=== PATIENT | male | born 1960 | race Caucasian/White ===

== ENCOUNTER 2024-01-27 10:38 | Emergency (ER) | payer BC ==
--- NOTE | 2024-01-27 11:15 | ED ---
General Adult HPI - General Chief complaint: Abdominal Pain Stated complaint: Abd pain-sent by Time Seen by Provider: 01/27/24 10:49 Source: patient, family, RN notes reviewed Mode of arrival: ambulatory Limitations: no limitations - History of Present Illness Initial comments: Patient is a pleasant 63-year-old male presenting to the emergency department with right inguinal pain. Patient has a known hernia. Patient states this morning it started to bother him again. Patient states it did pop out and was uncomfortable and hard. Patient states he was able to lie down and it did reduce itself. Patient states minimal discomfort at this point. Patient has had history of similar episodes multiple times previously. Patient did call his doctor who advised him to come to the emergency department. - Related Data Home Medications Medication Instructions Recorded Confirmed Acetaminophen Tab [Tylenol Tab] 1,000 mg PO Q6HR PRN 01/27/24 01/27/24 Tamsulosin [Flomax] 0.4 mg PO DIRECTED 01/27/24 01/27/24 Allergies Allergy/AdvReac Type Severity Reaction Status Date / Time No Known Allergies Allergy Verified 01/27/24 11:20 Review of Systems ROS Statement: Those systems with pertinent positive or pertinent negative responses have been documented in the HPI. ROS Other: All systems not noted in ROS Statement are negative. Constitutional: Denies: fever Eyes: Denies: eye pain ENT: Denies: ear pain Respiratory: Denies: cough Cardiovascular: Denies: chest pain Endocrine: Denies: fatigue Gastrointestinal: Reports: as per HPI Genitourinary: Reports: as per HPI Musculoskeletal: Denies: back pain Skin: Denies: rash Past Medical History Past Medical History: No Reported History Past Surgical History: No Surgical Hx Reported Smoking Status: Current every day smoker General Exam Limitations: no limitations General appearance: alert, in no apparent distress Head exam: Present: normocephalic Eye exam: Present: normal appearance Neck exam: Present: normal inspection Respiratory exam: Present: normal lung sounds bilaterally Cardiovascular Exam: Present: regular rate, normal rhythm GI/Abdominal exam: Present: soft, hernia (Easily reducible umbilical hernia). Absent: tenderness exam: Present: normal inspection, other (No hernia at this time). Absent: testicular tenderness, scrotal swelling Neurological exam: Present: alert Psychiatric exam: Present: normal affect, normal mood Skin exam: Present: normal color Course Vital Signs 01/27/24 10:41 Temperature 98 F Pulse Rate 85 Respiratory 16 Rate Blood Pressure 147/89 O2 Sat by Pulse 98 Oximetry Medical Decision Making - Medical Decision Making Was pt. sent in by a medical professional or institution (GHADA Garner, BRANCH OPERATION EVALUATION MANAGER, urgent care, hospital, or fci...) When possible be specific @ -No Did you speak to anyone other than the patient for history (EMS, parent, family, police, friend...)? What history was obtained from this source @ - is present and helps provide history including recurrent symptoms Did you review nursing and triage notes (agree or disagree)? Why? @ -I reviewed and agree with nursing and triage notes Were old charts reviewed (outside hosp., previous admission, EMS record, old EKG, old radiological studies, urgent care reports/EKG's, fci records)? Report findings @ -No old charts were reviewed Differential Diagnosis (chest pain, altered mental status, abdominal pain women, abdominal pain men, vaginal bleeding, weakness, fever, dyspnea, syncope, headache, dizziness, GI bleed, back pain, seizure, CVA, palpatations, mental health, musculoskeletal)? @ -Differential Abdominal Pain Men: Appendicitis, cholecystitis, diverticulosis, ischemic bowel, pancreatitis, hepatitis, UTI, gastroenteritis, AAA, incarcerated hernia, bowel obstruction, constipation, inflammatory bowel, hepatitis, peptic ulcer disease, splenic i nfarction, perforated viscus, testicular torsion, this is not meant to be an all-inclusive list EKG interpreted by me (3pts min.). @ -As above X-rays interpreted by me (1pt min.). @ -None done CT interpreted by me (1pt min.). @ -None done U/S interpreted by me (1pt. min.). @ -None done What testing was considered but not performed or refused? (CT, X-rays, U/S, labs)? Why? @ -Considered imaging however patient has symptoms consistent with straightforward inguinal hernia that has reduced with resolution of symptoms What meds were considered but not given or refused? Why? @ -None Did you discuss the management of the patient with other professionals (professionals i.e. GHADA Garner, BRANCH OPERATION EVALUATION MANAGER, lab, RT, psych nurse, 7th grade social studies teacher, correctional nurse, teacher, ground nuclear weapons assembly officer, field nurse case manager)? Give summary @ -Case was discussed with Dr. Cunha who did come evaluate patient and agrees with discharge Was smoking cessation discussed for >3mins.? @ -No Was critical care preformed (if so, how long)? @ -No Were there social determinants of health that impacted care today? How? (Homelessness, low income, unemployed, alcoholism, drug addiction, transportation, low edu. Level, literacy, decrease access to med. care, custodial, rehab)? @ -No Was there de-escalation of care discussed even if they declined (Discuss DNR or withdrawal of care, Hospice)? DNR status @ -No What co-morbidities impacted this encounter? (DM, HTN, Smoking, COPD, CAD, Cancer, CVA, ARF, Chemo, Hep., AIDS, mental health diagnosis, sleep apnea, morbid obesity)? @ -None Was patient admitted / discharged? Hospital course, mention meds given and route, prescriptions, significant lab abnormalities, going to OR and other pertinent info. @ -Patient and family updated on results and need to return if symptoms worsen as well as techniques for reducing hernia. Patient otherwise will follow-up with Dr. Beckwith for surgery next week. Undiagnosed new problem with uncertain prognosis? @ -No Drug Therapy requiring intensive monitoring for toxicity (Heparin, Nitro, Insulin, Cardizem)? @ -No Were any procedures done? @ -No Diagnosis/symptom? @ -Inguinal hernia Acute, or Chronic, or Acute on Chronic? @ -Acute on chronic Uncomplicated (without systemic symptoms) or Complicated (systemic symptoms)? @ -Default Side effects of treatment? @ -No Exacerbation, Progression, or Severe Exacerbation? @ -No Poses a threat to life or bodily function? How? (Chest pain, [place], [place], pneumonia, PE, COPD, DKA, ARF, appy, cholecystitis, CVA, Diverticulitis, Homicidal, Suicidal, threat to staff... and all critical care pts) @ -No Disposition Clinical Impression: Inguinal hernia Disposition: HOME SELF-CARE Condition: Stable Instructions (If sedation given, give patient instructions): Inguinal Hernia (ED) Additional Instructions: Please follow-up with Dr. Beckwith with surgery next week as planned. Return for increased pain, swelling, vomiting, fever, worsening or changing symptoms or any other concerns. Is patient prescribed a controlled substance at d/c from ED?: No Referrals: Messi Kidd MD [Primary Care Provider] - 1-2 days Lior Beckwith MD [STAFF PHYSICIAN] - 1-2 days Time of Disposition: 13:20
[2024-01-27 11:16] VITALS: TEMP 98
--- NOTE | 2024-01-27 13:04 | P.GSCN ---
History of Present Illness Consult date: 01/27/24 Reason for Consult: Right inguinal hernia pain History of present illness: Is a 63-year-old male known history of right angle hernia and umbilical hernia. Patient scheduled for operative repair next week. Patient states that he had severe right internal pain this morning. Patient states the pain spontaneously Resolved once he was in the emergency. Patient has no current pain Past Medical History Past Medical History: No Reported History Past Surgical History: No Surgical Hx Reported Smoking Status: Current every day smoker Medications and Allergies Home Medications Medication Instructions Recorded Confirmed Type Acetaminophen Tab [Tylenol Tab] 1,000 mg PO Q6HR PRN 01/27/24 01/27/24 History Tamsulosin [Flomax] 0.4 mg PO DIRECTED 01/27/24 01/27/24 History Allergies Allergy/AdvReac Type Severity Reaction Status Date / Time No Known Allergies Allergy Verified 01/27/24 11:20 Surgical - Exam Vital Signs Temp Pulse Resp BP Pulse Ox 98 F 85 16 147/89 98 01/27/24 10:41 01/27/24 10:41 01/27/24 10:41 01/27/24 10:41 01/27/24 10:41 - General well developed, well nourished, no distress - Eyes PERRL - ENT normal pinna, normal nares - Neck no masses - Respiratory normal expansion - Cardiovascular Rhythm: regular - Abdomen Reducible umbilical hernia reducible right inguinal hernia Abdomen: soft, non tender Assessment and Plan Assessment: Acute abdominal pain related to hernia. Patient has no pain currently. Patiently discharged home. He will follow-up for surgery next week.
[2024-01-27 13:53] VITALS: BP 115/74; PULSE 72; RESP 12
== END 2024-01-27 13:53 | disposition home or self-care (01) ==
LOC: EC 10:38
DX: K40.90 Unilateral inguinal hernia, without obstruction or gangrene, not specified as recurrent (principal); F17.200 Nicotine dependence, unspecified, uncomplicated
CPT/HCPCS: 99284

== ENCOUNTER 2024-02-02 06:17 | Day surgery (SDC) | payer BC ==
[~2024-02-02 06:17] MED LIST: HEPARIN SODIUM,PORCINE 5,000 UNIT/ML 1 ML VIAL SQ PRN; LACTATED RINGERS 1,000 ML IV SCH
[2024-02-02] MEDS: LACTATED RINGERS 1,000 ML IV ONE ×2 (07:44→08:45)
[2024-02-02] MEDS: ACETAMINOPHEN TAB 500 MG TAB PO PRN (07:47)
[2024-02-02] MEDS: DEXAMETHASONE SOD PHOSPHATE 4 MG/ML 1 ML VIAL IV ONE (07:47)
[2024-02-02] MEDS: ONDANSETRON 4 MG/2 ML VIAL IVP ONE ×2 (07:47→10:41)
[2024-02-02] MEDS: MIDAZOLAM 2 MG/2 ML VIAL IVP ONE (07:50)
[2024-02-02] MEDS: HEPARIN SODIUM,PORCINE 5,000 UNIT/ML 1 ML VIAL SQ ONE (08:00)
[2024-02-02] MEDS ORDERED: fentaNYL (PF) 50 MCG/ML 2 ML AMP ONE (08:02)
[2024-02-02] MEDS ORDERED: DEXAMETHASONE SOD PHOSPHATE 4 MG/ML 1 ML VIAL ONE (08:02)
[2024-02-02] MEDS ORDERED: NEOSTIGMINE 1 MG/ML 10 ML VIAL ONE (08:02)
[2024-02-02] MEDS ORDERED: MIDAZOLAM 2 MG/2 ML VIAL ONE (08:02)
[2024-02-02] MEDS ORDERED: ROCURONIUM 10 MG/ML (5 ML VIAL) IV ONE (08:02)
[2024-02-02] MEDS ORDERED: LIDOCAINE 1% INJ 10MG/ML (20 ML MDV) ONE (08:02)
[2024-02-02] MEDS ORDERED: PROPOFOL 10 MG/ML 20 ML VIAL IV ONE (08:02)
[2024-02-02] MEDS ORDERED: SODIUM CHLORIDE 0.9% (PF) 10 ML VIAL ONE (08:02)
[2024-02-02] MEDS ORDERED: HYDROmorphone (PF) 1 MG/ML ONE (08:02)
[2024-02-02] MEDS ORDERED: KETAMINE HCL IN 0.9 % NACL 50 MG/5 ML SYRINGE ONE (08:02)
[2024-02-02] MEDS ORDERED: GLYCOPYRROLATE 0.2 MG/ML 2 ML VIAL ONE (08:02)
[2024-02-02] MEDS ORDERED: ROPIVACAINE 5 MG/ML 30 ML VIAL ONE (08:02)
[2024-02-02] MEDS ORDERED: KETOROLAC 15 MG/ML 1 ML VIAL ONE (08:02)
[2024-02-02] MEDS ORDERED: SUCCINYLCHOLINE CHLORIDE 200 MG/10 ML VIAL IV ONE (08:02)
[2024-02-02] MEDS: LIDOCAINE 2%-EPI 1:100,000 20 ML VIAL SQ ONE (08:30)
--- NOTE | 2024-02-02 09:37 | P.OP ---
Date of Procedure: 02/02/24 Preoperative Diagnosis: right inguinal hernia Umbilical hernia Postoperative Diagnosis: bilateral hernia Umbilical hernia Left cord lipoma Procedure(s) Performed: laparoscopic robotic Bilateral inguinal hernia Excision of left cord lipoma umbilical hernia repair Transversus abdominis plane block Anesthesia: WILLIAN Surgeon: Lior Beckwith Estimated Blood Loss (ml): 5 Pathology: other (left cord lipoma) Condition: stable Disposition: PACU Description of Procedure: The patient's placed on the operating table in the supine position. The patient received general anesthesia. The patient's abdomen was prepped and draped in usual sterile fashion. The skin was anesthetized 1% local Xylocaine at the incision sites. Using an 11 blade a skin incision was made at the umbilicus. The fascia was grasped with a [place] and then the peritoneal cavity was entered with the Veress needle. Position of the Veress needle was confirmed with a positive drop test. After adequate insufflation a 5 mm trocar was placed into the peritoneal cavity. The Laparoscope was placed the peritoneal cavity. And a robotic 8 mm trocar was placed in the right lateral position and then another 8 mm robotic trochars placed in the left lateral position. The original 5 mm trocar was exchanged for a 12 mm trocar. A four-quadrant transverse is a postoperative block was performed with 1% local Xylocaine. The patient was placed in reverse Trendelenburg and then the patient was docked to the robot. Next the peritoneum over top of the right inguinal hernia was incised and then using blunt and sharp dissection and electrocautery the hernia sac was dissected free from the floor of the inguinal canal. The hernia sac was completely reduced into the peritoneal cavity. And then using the Pro rn licensed practical mesh the hernia was repaired. The peritoneum was then sutured with 20V lock suture. Next the peritoneum over top of the left inguinal hernia was incised and then using blunt and sharp dissection and electrocautery the hernia sac was dissected free from the floor of the inguinal canal. the cord lipoma was dissected free sent to pathology.The hernia sac was completely reduced into the peritoneal cavity. And then using the Pro rn licensed practical mesh the hernia was repaired. The peritoneum was then sutured with 20V lock suture. The Vinicio Roman suture passer used to repair the umbilical hernia with 0 Vicryl suture. The patient was then undocked the robot. The needle was withdrawn from the peritoneal cavity. The umbilical trocar site was closed with 0 Ethibond suture. The skin was closed interrupted 3-0 Monocryl suture. Dermabond dressing was applied. Patient was sent to recovery in stable condition.
[2024-02-02] MEDS: HYDROmorphone 0.5 MG/0.5 ML SYRINGE IVP PRN (09:47)
[2024-02-02 09:48] VITALS: TEMP 97.1
[2024-02-02] MEDS ORDERED: ONDANSETRON 4 MG/2 ML VIAL ONE (10:37)
[2024-02-02 11:08] VITALS: RESP 18
[2024-02-02 11:49] VITALS: BP 134/68; PULSE 78
--- NOTE | 2024-02-03 12:27 | P.ANPRN ---
Procedure Note - Anesthesia - Nerve Block Performed Bilateral Erector Spinae Single Time Out Performed: Yes Date of Procedure: 02/02/24 Procedure Start Time: 07:50 Procedure Stop Time: 07:55 Location of Patient: PreOp Indication: Acute Post-Operative Pain, Requested by Surgeon Sedation Type: Sedate with meaningful contact maintained Preparation: Sterile Prep Position: Prone Needle Types: Pajunk Needle Gauge: 21 Ultrasound used to visualize needle placement: Yes Ultrasound used to observe medication spread: Yes Blood Aspirated: No Pain Paresthesia on Injection Noted: No Resistance on Injection: Normal Image Stored and Saved: Yes Events: Uneventful and Well Tolerated (Ropivacaine 0.5% 15 cc plus dexamethasone 4 mg plus normal saline 10 cc given at L1 bilaterally)
== END 2024-02-02 11:24 | disposition home or self-care (01) ==
LOC: OR 06:17
PROVIDERS: ATTEND Surgery
DX: K40.20 Bilateral inguinal hernia, without obstruction or gangrene, not specified as recurrent (principal); D17.6 Benign lipomatous neoplasm of spermatic cord; K42.9 Umbilical hernia without obstruction or gangrene; G89.18 Other acute postprocedural pain; F17.210 Nicotine dependence, cigarettes, uncomplicated
CPT/HCPCS: 49591; 49650; 64999; 88304; C1781 ×2; J2250; J0330; J1644; J1100; J2710; J0690; J2405; J2001; J3010; J1170 ×2; J2795; J1885; J2704